=== PATIENT | female | born 1975 | race Caucasian/White ===

== ENCOUNTER 2017-10-15 10:31 | Outpatient (CLI) | payer BC | END 2017-10-15 10:32 | disposition home or self-care (01) | LOC: BICMAMMO 10:31 | PROVIDERS: ATTEND Family Medicine | DX: Z12.31 Encounter for screening mammogram for malignant neoplasm of breast (principal); R92.1 Mammographic calcification found on diagnostic imaging of breast | CPT/HCPCS: 77063; 77067 ==

== ENCOUNTER 2019-08-17 08:37 | Outpatient (CLI) | payer BC ==
--- NOTE | 2019-08-17 09:33 | MMO ---
Bilateral MAMMO Bilat Screen [facility]. CLINICAL HISTORY: Patient is 44 years old and is seen for screening. The patient family history of breast cancer is unknown. The patient has no personal history of cancer. VIEWS: The views performed were: bilateral craniocaudal with tomosynthesis; bilateral mediolateral oblique with tomosynthesis; and bilateral exaggerated craniocaudal. FILMS COMPARED: The present examination has been compared to a prior imaging study performed at [facility] on 10/15/2017. This study has been interpreted with the assistance of computer-aided detection. MAMMOGRAM FINDINGS: The breasts are extremely dense, which may lower the sensitivity of mammography. There are no suspicious masses, suspicious calcifications, or new areas of architectural distortion. IMPRESSION: THERE IS NO MAMMOGRAPHIC EVIDENCE OF MALIGNANCY. A ROUTINE FOLLOW-UP MAMMOGRAM IN 1 YEAR IS RECOMMENDED. THE RESULTS OF THIS EXAM WERE SENT TO THE PATIENT. ACR BI-RADS Category 1 - Negative MAMMOGRAPHY NOTE: 1. A negative mammogram report should not delay a biopsy if a dominant of clinically suspicious mass is present. 2. Approximately 10% to 15% of breast cancers are not detected by mammography. 3. Adenosis and dense breasts may obscure an underlying neoplasm. Reported by: MARCO LEWIS MD Electonically Signed: [id number]
== END 2019-08-17 08:38 | disposition home or self-care (01) ==
LOC: BICMAMMO 08:37
PROVIDERS: ATTEND Family Medicine
DX: Z12.31 Encounter for screening mammogram for malignant neoplasm of breast (principal)
CPT/HCPCS: 77063; 77067

== ENCOUNTER 2020-08-12 13:25 | Outpatient (CLI) | payer OTHER ==
--- NOTE | 2020-08-12 14:56 | MMO ---
Bilateral MAMMO Bilat Screen [facility]. CLINICAL HISTORY: Patient is 45 years old and is seen for screening. The patient family history of breast cancer is unknown. The patient has no personal history of cancer. VIEWS: The views performed were: bilateral craniocaudal with tomosynthesis and bilateral mediolateral oblique with tomosynthesis. FILMS COMPARED: The present examination has been compared to prior imaging studies performed at [facility] on 10/15/2017 and 08/17/2019. This study has been interpreted with the assistance of computer-aided detection. MAMMOGRAM FINDINGS: The breasts are extremely dense, which may lower the sensitivity of mammography. There are no suspicious masses, suspicious calcifications, or new areas of architectural distortion. IMPRESSION: THERE IS NO MAMMOGRAPHIC EVIDENCE OF MALIGNANCY. A ROUTINE FOLLOW-UP MAMMOGRAM IN 1 YEAR IS RECOMMENDED. THE RESULTS OF THIS EXAM WERE SENT TO THE PATIENT. ACR BI-RADS Category 1 - Negative MAMMOGRAPHY NOTE: 1. A negative mammogram report should not delay a biopsy if a dominant of clinically suspicious mass is present. 2. Approximately 10% to 15% of breast cancers are not detected by mammography. 3. Adenosis and dense breasts may obscure an underlying neoplasm. Reported by: LIAM LYNNE MD Electonically Signed: [id number]
== END 2020-08-12 13:26 | disposition home or self-care (01) ==
LOC: BICMAMMO 13:25
PROVIDERS: ATTEND Family Medicine
DX: Z12.31 Encounter for screening mammogram for malignant neoplasm of breast (principal)
CPT/HCPCS: 77063; 77067

== ENCOUNTER 2021-06-26 07:55 | Outpatient (CLI) | payer OTHER | END 2021-06-26 07:56 | disposition home or self-care (01) | LOC: BICCT 07:55 | PROVIDERS: ATTEND Family Medicine | DX: R31.9 Hematuria, unspecified (principal); N32.89 Other specified disorders of bladder | CPT/HCPCS: 74178 ==

== ENCOUNTER 2021-07-24 12:05 | Outpatient (CLI) | payer OTHER ==
[2021-07-25 11:58] LABS: SARS-CoV-2 PCR by NAA Not Detected (NotDetected)
== END 2021-07-24 12:06 | disposition home or self-care (01) ==
LOC: LABBT 12:05
PROVIDERS: ATTEND Urology
DX: Z01.812 Encounter for preprocedural laboratory examination (principal); D41.4 Neoplasm of uncertain behavior of bladder; Z20.822 Contact with and (suspected) exposure to COVID-19
CPT/HCPCS: U0003; U0005

== ENCOUNTER 2021-07-29 06:16 | Day surgery (SDC) | payer OTHER ==
[2021-07-25 14:26] VITALS: BMI 21.1
[2021-07-29] MEDS ORDERED: Levofloxacin 500 mg/D5W 100 ml Premix Bag ONE (07:12)
[2021-07-29] MEDS ORDERED: Midazolam HCl 2 mg/2 ml Vial ONE ×2 (07:53→08:37)
[2021-07-29] MEDS ORDERED: Fentanyl 100 MCG/2 ML VIAL ONE (08:32)
[2021-07-29] MEDS ORDERED: Ketorolac Tromethamine 30 MG/ML VIAL ONE (09:20)
[2021-07-29] MEDS ORDERED: Oxybutynin 5 MG TAB ONE (09:20)
[2021-07-29] MEDS ORDERED: Phenazopyridine HCl 100 MG TAB ONE (09:20)
== END 2021-07-29 12:30 | disposition home or self-care (01) ==
LOC: SDC 06:16
PROVIDERS: ATTEND Urology
PROC: 0T5B8ZZ Destruction of Bladder, Via Natural or Artificial Opening Endoscopic (ICD-10-PCS; principal; 2021-07-29)
PROC: 3E0K705 Introduction of Other Antineoplastic into Genitourinary Tract, Via Natural or Artificial Opening (ICD-10-PCS; principal; 2021-07-29)
DX: C67.2 Malignant neoplasm of lateral wall of bladder (principal)
CPT/HCPCS: 88307; J1885; J1956; J2250; J3010; J9280

== ENCOUNTER 2021-08-13 08:52 | Outpatient (CLI) | payer OTHER | END 2021-08-13 08:53 | disposition home or self-care (01) | LOC: BICMAMMO 08:52 | PROVIDERS: ATTEND Family Medicine | DX: Z12.31 Encounter for screening mammogram for malignant neoplasm of breast (principal) | CPT/HCPCS: 77063; 77067 ==

== ENCOUNTER 2023-06-15 13:43 | Outpatient (CLI) | payer BC ==
[2023-06-15 15:01] LABS: Hematocrit 43.4 % (34.9-44.5); Hemoglobin 14.8 g/dL (12.0-15.5); Mean Corpuscular HGB CONC 34.1 g/dL (32.0-36.0); Mean Corpuscular Hemoglobin 30.1 pg (27.0-33.0); Mean Corpuscular Volume 88.2 fl (81.6-98.3); Mean Platelet Volume 11.3 fl (7.4-10.4); Platelet Count 198 10x3/uL (150-450); RBC Distribution Width 12.4 % (11.5-14.5); Red Blood Cell (RBC) Count 4.92 10x6/uL (3.90-5.03)
[2023-06-15 15:04] LABS: Bilirubin Neg (Negative); Blood, Urine Negative (Negative); Clarity Clear (Clear); Glucose, Urine (Dipstick) Normal (Negative); Ketone, Urine Negative (Negative); Leukocyte 100 (Negative); Nitrite Negative (Negative); Protein, Urine (Dipstick) Negative (Neg-Trace); Specific Gravity, Urine 1.005 (1.005-1.030); Urobilinogen Normal mg/dL (Less than 2)
[2023-06-15 15:13] LABS: Bacteria/HPF None Seen HPF (None Seen); RBC/HPF None Seen HPF (0-3); Squamous Epithelial 0-3 HPF (0-3); WBC/HPF 0-3 HPF (0-3)
[2023-06-15 15:34] LABS: PTT 30.5 sec (22.0-33.0); Prothrombin Time 10.9 sec (9.5-12.1)
[2023-06-15 15:48] LABS: Anion Gap 14 mmol/L (10-20); BUN (Urea Nitrogen) 15 mg/dL (7.0-18.7); Calc. Creatinine Clearance 0 mL/min (70-130); Calcium 9.2 mg/dL (7.8-10.44); Carbon Dioxide 25 mmol/L (22-29); Chloride 103 mmol/L (98-107); Estimated GFR 100; Glucose 92 mg/dL (70-105); Potassium 4.4 mmol/L (3.5-5.1); Sodium 138 mmol/L (136-145)
== END 2023-06-15 13:44 | disposition home or self-care (01) ==
LOC: LABBT 13:43
PROVIDERS: ATTEND Urology
DX: Z01.818 Encounter for other preprocedural examination (principal); C67.2 Malignant neoplasm of lateral wall of bladder; N20.0 Calculus of kidney; N28.1 Cyst of kidney, acquired
CPT/HCPCS: 80048; 81001; 85027; 85610; 85730; 87086; 93005; 93010

== ENCOUNTER 2023-06-18 07:32 | Outpatient (CLI) | payer BC ==
[2023-06-18] MEDS ORDERED: Iopamidol 370 76% 100 ML VIAL ONE (10:12)
== END 2023-06-18 07:33 | disposition home or self-care (01) ==
LOC: BICCT 07:32
PROVIDERS: ATTEND Urology
DX: C67.2 Malignant neoplasm of lateral wall of bladder (principal); N20.0 Calculus of kidney; N28.1 Cyst of kidney, acquired; N32.89 Other specified disorders of bladder
CPT/HCPCS: 74178

== ENCOUNTER 2023-06-23 09:02 | Day surgery (SDC) | payer BC ==
[~2023-06-23 09:02] MED LIST: LevoFLOXacin 500 mg/D5W 500 MG in Premix 1 BAG IVPB SCH; mitoMYcin 40 MG in Sodium Chloride 0.9% 40 ML I-VESIC SCH
[2023-06-23] MEDS ORDERED: LevoFLOXacin 500 mg/D5W 100 ML BAG ONE (11:16)
[2023-06-23] MEDS ORDERED: fentaNYL 50 mcg/mL 1 mL Vial ONE (11:44)
[2023-06-23] MEDS ORDERED: Hyoscyamine SL 0.125 MG TAB ONE (12:48)
[2023-06-23] MEDS ORDERED: Phenazopyridine HCl 100 MG TAB ONE (13:01)
[2023-06-23] MEDS ORDERED: Oxybutynin 5 MG TAB ONE (13:01)
== END 2023-06-23 15:40 | disposition home or self-care (01) ==
LOC: SDC 09:02
PROVIDERS: ATTEND Urology
PROC: 3E0K805 Introduction of Other Antineoplastic into Genitourinary Tract, Via Natural or Artificial Opening Endoscopic (ICD-10-PCS; principal; 2023-06-23)
PROC: 0TBB8ZZ Excision of Bladder, Via Natural or Artificial Opening Endoscopic (ICD-10-PCS; principal; 2023-06-23)
DX: C67.2 Malignant neoplasm of lateral wall of bladder (principal); N20.1 Calculus of ureter; Z88.0 Allergy status to penicillin
CPT/HCPCS: 86850; 86900; 86901; 88305; J1956; J3010; J9280

== ENCOUNTER 2023-07-03 14:18 | Emergency (ER) | payer BC ==
[~2023-07-03 14:18] MED LIST changes: +Iopamidol-370 76% 500 ML MDV (1 ML CHARGE) ONE; -LevoFLOXacin 500 mg/D5W 500 MG in Premix 1 BAG IVPB SCH; -mitoMYcin 40 MG in Sodium Chloride 0.9% 40 ML I-VESIC SCH
[2023-07-03] MEDS ORDERED: Ondansetron PF 4 MG/2 ML Vial ONE ×2 (16:03→19:31)
[2023-07-03] MEDS ORDERED: Morphine 4 MG/ML VIAL ONE (16:03)
[2023-07-03] MEDS ORDERED: fentaNYL 50 mcg/mL 1 mL Vial ONE ×2 (16:11→17:43)
[2023-07-03 16:14] LABS: #Monocytes 0.2 thou/uL (0.11-0.59); #Neutrophils 1.8 thou/uL (1.40-6.50); %Basophils 0.3 % (0.0-1.0); %Lymphocytes 34.1 % (21.0-51.0); %Monocytes 6.7 % (0.0-10.0); %Neutrophils 57.6 % (42.0-75.0); Hematocrit 39.2 % (36.0-47.0); Hemoglobin 13.8 g/dL (12.0-16.0); Mean Corpuscular HGB CONC 35.2 g/dL (32.0-36.0); Mean Corpuscular Hemoglobin 30.9 pg (27.0-31.0); Mean Corpuscular Volume 87.7 fl (78.0-98.0); Mean Platelet Volume 10.8 fL (7.4-10.4); Platelet Count 180 10x3/uL (130-400); RBC Distribution Width 12.1 % (11.5-14.5); Red Blood Cell (RBC) Count 4.47 mill/uL (4.20-5.40); White Blood Cell (WBC) Count 3.1 10x3/uL (4.8-10.8)
[2023-07-03 16:39] LABS: ALT (SGPT) 18 U/L (8-55); AST (SGOT) 16 U/L (5-34); Albumin 4.5 g/dL (3.5-5.0); Alkaline Phosphatase 47 U/L (40-110); Anion Gap 13 mmol/L (10-20); BUN (Urea Nitrogen) 16 mg/dL (7.0-18.7); Bilirubin, Total 0.5 mg/dL (0.2-1.2); Calc. Creatinine Clearance 0 mL/min (70-130); Calcium 9.4 mg/dL (7.8-10.44); Carbon Dioxide 25 mmol/L (22-29); Chloride 101 mmol/L (98-107); Estimated GFR 81; Glucose 98 mg/dL (70-105); Potassium 3.7 mmol/L (3.5-5.1); Protein, Total 6.5 g/dL (6.0-8.3); Sodium 135 mmol/L (136-145)
[2023-07-03] MEDS ORDERED: HYDROmorphone 0.5 MG/0.5 ML SYRINGE ONE (16:43)
[2023-07-03 17:19] LABS: BHCG - Serum Negative (NEGATIVE); Pregs Control Background? CLEAR/WHITE (CLR/WHITE); Pregs Control Bar Appear? YES (CONTROL BAR)
[2023-07-03 18:41] LABS: Bilirubin Negative (Negative); Blood, Urine Negative (Negative); Clarity Clear (Clear); Glucose, Urine (Dipstick) Normal (Negative); Ketone, Urine 20 mg/dL (Negative); Leukocyte Negative Leu/uL (Negative); Nitrite Negative (Negative); Protein, Urine (Dipstick) Negative (Neg-Trace); Specific Gravity, Urine 1.026 (1.002-1.036); Urobilinogen Normal mg/dL (Less than 2)
[2023-07-03 18:46] LABS: Bacteria/HPF Rare-Few HPF (None Seen); CAUTI Indications for Culture Acute Hematuria; RBC/HPF 0-3 HPF (0-3); Squamous Epithelial 0-3 HPF (0-3); WBC/HPF 0-3 HPF (0-3)
[2023-07-03 18:48] LABS: Urine Culture Reflex No No
[2023-07-03] MEDS ORDERED: HYDROcodone/Acetaminophen 5/325 mg Tablet ONE (19:31)
[2023-07-03] MEDS ORDERED: Ibuprofen 200 MG TAB ONE (22:31)
== END 2023-07-03 22:55 | disposition home or self-care (01) ==
LOC: ERS 14:18
DX: N32.89 Other specified disorders of bladder (principal)
CPT/HCPCS: 74177; 80053; 81001; 83605; 84703; 85025; 96361; 96374; 96375; 96376; J1170; J2270; J2405; J3010; Q9967

== ENCOUNTER 2023-09-16 10:37 | Outpatient (CLI) | payer BC | END 2023-09-16 10:38 | disposition home or self-care (01) | LOC: BICRAD 10:37 | PROVIDERS: ATTEND Urology | DX: C67.2 Malignant neoplasm of lateral wall of bladder (principal); N20.0 Calculus of kidney; N28.1 Cyst of kidney, acquired | CPT/HCPCS: 74018 ==

== ENCOUNTER 2023-10-19 12:15 | Outpatient (CLI) | payer BC ==
[2023-10-19 14:10] LABS: Hematocrit 41.5 % (34.9-44.5); Hemoglobin 14.8 g/dL (12.0-15.5); Mean Corpuscular HGB CONC 35.7 g/dL (32.0-36.0); Mean Corpuscular Hemoglobin 32.2 pg (27.0-33.0); Mean Corpuscular Volume 90.2 fl (81.6-98.3); Mean Platelet Volume 11.4 fl (7.4-10.4); Platelet Count 155 10x3/uL (150-450); RBC Distribution Width 11.8 % (11.5-14.5); White Blood Cell (WBC) Count 3.4 10x3/uL (3.5-10.5)
[2023-10-19 14:13] LABS: Bilirubin Neg (Negative); Blood, Urine Negative (Negative); Clarity Clear (Clear); Glucose, Urine (Dipstick) Normal (Negative); Ketone, Urine Negative (Negative); Leukocyte Negative (Negative); Nitrite Negative (Negative); Protein, Urine (Dipstick) Negative (Neg-Trace); Specific Gravity, Urine 1.005 (1.005-1.030); Urobilinogen Normal mg/dL (Less than 2)
[2023-10-19 14:27] LABS: PTT 31.3 sec (22.0-33.0); Prothrombin Time 10.7 sec (9.5-12.1)
[2023-10-19 15:06] LABS: Bacteria/HPF None Seen HPF (None Seen); RBC/HPF None Seen HPF (0-3); Squamous Epithelial 0-3 HPF (0-3); WBC/HPF None Seen HPF (0-3)
[2023-10-19 15:14] LABS: Anion Gap 13 mmol/L (10-20); BUN (Urea Nitrogen) 11 mg/dL (7.0-18.7); Calc. Creatinine Clearance 0 mL/min (70-130); Carbon Dioxide 25 mmol/L (22-29); Chloride 104 mmol/L (98-107); Estimated GFR 109; Glucose 82 mg/dL (70-105); Potassium 4.1 mmol/L (3.5-5.1); Sodium 138 mmol/L (136-145)
== END 2023-10-19 12:16 | disposition home or self-care (01) ==
LOC: LABBT 12:15
PROVIDERS: ATTEND Urology
DX: Z01.818 Encounter for other preprocedural examination (principal); C67.2 Malignant neoplasm of lateral wall of bladder; N20.0 Calculus of kidney; N28.1 Cyst of kidney, acquired
CPT/HCPCS: 80048; 81001; 85027; 85610; 85730; 87086; 93005; 93010

== ENCOUNTER 2023-10-27 07:55 | Day surgery (SDC) | payer BC ==
[2023-10-19 12:49] VITALS: BMI 20.6
[~2023-10-27 07:55] MED LIST changes: -Iopamidol-370 76% 500 ML MDV (1 ML CHARGE) ONE; +mitoMYcin 40 MG in Sodium Chloride 0.9% 40 ML I-VESIC SCH
[2023-10-27] MEDS ORDERED: LevoFLOXacin D5W 500 mg (100 mL) BAG ONE (08:55)
[2023-10-27] MEDS ORDERED: Dexamethasone 20 MG/5 ML VIAL ONE (09:44)
[2023-10-27] MEDS ORDERED: fentaNYL PF 100 MCG/2 ML SYRINGE ONE (09:44)
[2023-10-27] MEDS ORDERED: Rocuronium Bromide 10 MG/ML (10ML VIAL) ONE (09:44)
[2023-10-27] MEDS ORDERED: Dexmedetomidine 200 MCG/2 ML VIAL ONE (09:44)
[2023-10-27] MEDS ORDERED: Ondansetron PF 4 MG/2 ML Vial ONE (09:44)
[2023-10-27] MEDS ORDERED: PROPOFOL 20 ML ONE (09:44)
[2023-10-27] MEDS ORDERED: Lidocaine 1% PF 5 ML VIAL ONE (09:59)
[2023-10-27] MEDS ORDERED: ePHEDrine Sulfate 50 MG/10 ML VIAL ONE (10:11)
[2023-10-27] MEDS ORDERED: SUGAMMADEX SODIUM 200 MG/2 ML VIAL ONE (10:41)
[2023-10-27] MEDS ORDERED: Hyoscyamine SL 0.125 MG TAB ONE (11:13)
== END 2023-10-27 15:03 | disposition home or self-care (01) ==
LOC: SDC 07:55
PROVIDERS: ATTEND Urology
PROC: 0TBB8ZZ Excision of Bladder, Via Natural or Artificial Opening Endoscopic (ICD-10-PCS; principal; 2023-10-27)
DX: C67.2 Malignant neoplasm of lateral wall of bladder (principal); C67.4 Malignant neoplasm of posterior wall of bladder; C67.1 Malignant neoplasm of dome of bladder; C67.3 Malignant neoplasm of anterior wall of bladder; N28.1 Cyst of kidney, acquired; Z88.0 Allergy status to penicillin
CPT/HCPCS: 74420; 82365; 86850; 86900; 86901; 88300; 88307; A4333; J1100; J1956; J2405; J2704; J9280

== ENCOUNTER 2023-10-29 08:13 | Outpatient (CLI) | payer BC | END 2023-10-29 08:14 | disposition home or self-care (01) | LOC: ULT 08:13 | PROVIDERS: ATTEND Urology | DX: M79.89 Other specified soft tissue disorders (principal) | CPT/HCPCS: 93970 ==

== ENCOUNTER 2024-05-24 06:47 | Day surgery (SDC) | payer BC ==
[2024-05-24] MEDS ORDERED: LevoFLOXacin D5W 500 mg (100 mL) BAG ONE (07:09)
[2024-05-24] MEDS ORDERED: mitoMYcin 40 MG in Sodium Chloride 0.9% 40 ML I-VESIC SCH ×2 (07:30→08:00)
[2024-05-24] MEDS ORDERED: fentaNYL PF 100 MCG/2 ML SYRINGE ONE (07:59)
[2024-05-24] MEDS ORDERED: PROPOFOL 20 ML ONE (07:59)
[2024-05-24] MEDS ORDERED: Midazolam HCl 2 mg/2 ml Vial ONE (08:00)
[2024-05-24] MEDS ORDERED: Lidocaine 1% PF 5 ML VIAL ONE (08:30)
[2024-05-24] MEDS ORDERED: ePHEDrine Sulfate 50 MG/10 ML VIAL ONE (08:37)
[2024-05-24] MEDS ORDERED: Ondansetron PF 4 MG/2 ML Vial ONE (08:40)
[2024-05-24] MEDS ORDERED: Dexamethasone 20 MG/5 ML VIAL ONE (08:40)
[2024-05-24] MEDS ORDERED: Ketamine In 0.9 % NaCl 50 MG/5 ML SYRINGE ONE (08:41)
[2024-05-24] MEDS ORDERED: SUGAMMADEX SODIUM 200 MG/2 ML VIAL ONE (08:51)
[2024-05-24] MEDS ORDERED: Hyoscyamine SL 0.125 MG TAB ONE (09:20)
[2024-05-24] MEDS ORDERED: Phenazopyridine HCl 100 MG TAB ONE (09:21)
[2024-05-24] MEDS ORDERED: Oxybutynin 5 MG TAB ONE (09:21)
== END 2024-05-24 13:00 | disposition home or self-care (01) ==
LOC: SDC 06:47
PROVIDERS: ATTEND Urology
PROC: 0TBB8ZX Excision of Bladder, Via Natural or Artificial Opening Endoscopic, Diagnostic (ICD-10-PCS; principal; 2024-05-24)
PROC: 0T5B8ZZ Destruction of Bladder, Via Natural or Artificial Opening Endoscopic (ICD-10-PCS; principal; 2024-05-24)
DX: C67.2 Malignant neoplasm of lateral wall of bladder (principal); Z79.899 Other long term (current) drug therapy; Z98.890 Other specified postprocedural states; Z88.0 Allergy status to penicillin
CPT/HCPCS: 36415; 86850; 86900; 86901; 88305; J1100; J1956; J2250; J2405; J2704; J3490; J9280

== ENCOUNTER 2024-08-25 07:47 | Outpatient (CLI) | payer BC ==
[2024-08-25] MEDS ORDERED: Iopamidol 370 76% 100 ML VIAL ONE (08:45)
== END 2024-08-25 07:48 | disposition home or self-care (01) ==
LOC: BICCT 07:47
PROVIDERS: ATTEND Urology
DX: C67.2 Malignant neoplasm of lateral wall of bladder (principal); N20.0 Calculus of kidney; N28.1 Cyst of kidney, acquired
CPT/HCPCS: 74178; Q9967

== ENCOUNTER 2025-06-07 10:58 | Outpatient (CLI) | payer BC | END 2025-06-07 10:59 | disposition home or self-care (01) | LOC: BICRAD 10:58 | PROVIDERS: ATTEND Urology | DX: N20.0 Calculus of kidney (principal) | CPT/HCPCS: 74018 ==